=== PATIENT | male | born 1995 | race Caucasian/White ===

== ENCOUNTER 2022-04-14 12:01 | Emergency (ER) | payer SELFPAY ==
[~2022-04-14] VITALS: Ht 175.3 cm; Wt 95.5 kg
[2022-04-14 12:55] VITALS: BP 141/77; TEMP 97.9
[2022-04-14] MEDS ORDERED: DYNAPEN500 MG PO (15:05)
[2022-04-14 15:18] VITALS: PULSE 75
== END 2022-04-14 15:18 | disposition home or self-care (01) ==
LOC: COL.ER 12:01
DX: L60.0 Ingrowing nail (principal); L03.031 Cellulitis of right toe; Z88.1 Allergy status to other antibiotic agents

== ENCOUNTER 2022-07-25 07:52 | Day surgery (SDC) | payer BC ==
[~2022-07-25] VITALS: Ht 175.3 cm; Wt 105.5 kg
[~2022-07-25 07:52] MED LIST: DYNAPEN500 MG PO
[2022-07-25 08:13] VITALS: BP 110/74; PULSE 60; TEMP 97.2
[2022-07-25] MEDS ORDERED: LAMICTAL 25MG T25 MG PO (08:16)
[2022-07-25] MEDS ORDERED: TRUVADA PO (08:17)
[2022-07-25] MEDS ORDERED: LINZESS72 MCG PO (08:17)
[2022-07-25] MEDS ORDERED: ATROVENTNS0.03% NS (08:18)
[2022-07-25] MEDS ORDERED: ZYRTEC 10MG10 MG PO (08:18)
[2022-07-25 09:35] VITALS: BP 103/93; PULSE 60
--- NOTE | 2022-07-25 09:35 | NUR ---
PATIENT RETURNS BAY 3 PER CART AND TRANSFERS FROM CART TO RECLINER WITH ONE PERSON ASSIST. IV FLUIDS INFUSING AND DENIES PAIN OR NAUSEA.
[2022-07-25 09:50] VITALS: BP 101/86; PULSE 85
--- NOTE | 2022-07-25 09:50 | NUR ---
DRINKING WATER AND EATING MUFFIN. CONTINUES TO DENY PAIN OR NAUSEA.
[2022-07-25 10:05] VITALS: BP 119/83; PULSE 57
--- NOTE | 2022-07-25 10:05 | NUR ---
DISMISSAL INSTRUCTIONS GIVEN AND IV DISCONTINUED AND SITE IS FREE OF REDNESS. PATIENT DRESSES SELF.
--- NOTE | 2022-07-25 10:13 | NUR ---
PATIENT DISCHARGED TO HOME DRIVEN BY SISTER AND TAKEN TO THE VEHICLE PER WHEELCHAIR AND ASSISTED INTO VEHICLE WITH INSTRUCTIONS IN HAND.
== END 2022-07-25 10:13 | disposition home or self-care (01) ==
LOC: SDCO 07:52
DX: K62.1 Rectal polyp (principal); K64.0 First degree hemorrhoids; K64.4 Residual hemorrhoidal skin tags; K60.2 Anal fissure, unspecified; Z87.891 Personal history of nicotine dependence
CPT/HCPCS: J2704; J3010; J7030